=== PATIENT | male | born 1955 | race Caucasian/White ===

== ENCOUNTER 2018-04-10 07:10 | Inpatient (IN) | payer MEDICAID ==
[2018-04-10 07:14] VITALS: BMI 29.5
--- NOTE | 2018-04-10 07:16 | ED PDOC ---
Arrival/HPI - General Chief Complaint: Respiratory Distress Time Seen by Provider: 04/10/18 07:11 Historian: Patient EM Caveat: Acuity of Condition - Critical Care Critical Care Minutes: 45 minutes - History of Present Illness Narrative History of Present Illness (Text): 04/10/18 07:13 62 year old male, whose past medical history includes NIDDM and hyperlipidemia, presents to the emergency department complaining of shortness of breath with associated chest pain from earlier today. The patient was seen in [facility] department with the presenting symptoms and an aortic dissection protocol CT scan was performed. CT was negative for dissection, but was still dyspneic. He was almost intubated and was given Lasix, Ativan, fentanyl, prior to intubation and responded to the medication. His original EKG revealed ST elevations in V1, V2, V3 with reciprocal depressions in V4-V6 as well lead 2 and 3 and 1. EKG was sent immediately to Dr. Bishop who requested for [facility] to be initiated. A more complete HPI was unable to be obtained due to the patient's clinical condition Time/Duration: Prior to Arrival Symptom Onset: Gradual Symptom Course: Unchanged Quality: Unable to Describe Severity Level: Severe Activities at Onset: Significant Context: Home Past Medical History - Provider Review Nursing Documentation Reviewed: Yes - Travel History Have you recently traveled outside [place] w/in the past 3 mons?: No - Infectious Disease Hx of Infectious Diseases: None - Tetanus Immunization Tetanus Immunization: Unknown - Cardiac Hx Hyperlipemia: Yes - Endocrine/Metabolic Hx Diabetes Mellitus Type 2: Yes - Psychiatric Hx Substance Use: No - Surgical History Other/Comment: Pt states numerous surgeries r/t ca hx. - Anesthesia Hx Anesthesia: Yes Hx Anesthesia Reactions: No Hx Malignant Hyperthermia: No - Suicidal Assessment Feels Threatened In Home Enviroment: No Family/Social History - Physician Review Nursing Documentation Reviewed: Yes Family/Social History: Unknown Family HX Smoking Status: Heavy Smoker > 10 Cigarettes Daily Hx Alcohol Use: No Hx Substance Use: No Hx Substance Use Treatment: Yes Allergies/Home Meds Allergies/Adverse Reactions: Allergies No Known Allergies Allergy (Verified 04/10/18 07:11) Home Medications: Home Meds Medication Instructions Recorded Confirmed Omeprazole [Prilosec] 40 mg PO DAILY 08/04/14 04/10/18 Alogliptin Meir/Metformin HCl 1 each PO BID 04/10/18 04/10/18 [Alogliptin-Metformin 12.5-1000] Ascorbic Acid [Vitamin C] 500 mg PO DAILY 04/10/18 04/10/18 Atorvastatin [Lipitor] 10 mg PO DAILY 04/10/18 04/10/18 Cholecalciferol [Vitamin D] 50,000 iu PO QWK 04/10/18 04/10/18 Enalapril Maleate [Vasotec] 2.5 mg PO DAILY 04/10/18 04/10/18 Fenofibrate,Micronized 134 mg PO DAILY 04/10/18 04/10/18 [Fenofibrate] Gabapentin 800 mg PO TID 04/10/18 04/10/18 Insulin Lispro Mix 75/25 [humalog 55 units SC QAM 04/10/18 04/10/18 Mix 75/25 75 U/Ml-25 U/Ml 10 Ml] Insulin Lispro Mix 75/25 [humalog 55 units SC QPM 04/10/18 04/10/18 Mix 75/25 75 U/Ml-25 U/Ml 10 Ml] Liraglutide [Victoza] 1.8 mg SC DAILY 04/10/18 04/10/18 [place]-3 Fatty Acids/Fish Oil 2 cap PO BID 04/10/18 04/10/18 [[place] 3 Fish Oil Softgel] Review of Systems - Physician Review All systems were reviewed & negative as marked: Yes - Review of Systems Systems not reviewed;Unavailable: Acuity of Condition Respiratory: SOB Cardiovascular: Chest Pain Physical Exam - Physical Exam Physical Exam Limitations: Clinical Condition Vital Signs Reviewed: Yes Blood Pressure: Normal Pulse: Tachycardic Respiratory Rate: Tachypneic Appearance: Positive for: Well-Appearing, Non-Toxic, Comfortable Pain Distress: None Mental Status: Positive for: Alert and Oriented X 3 - Systems Exam Head: Present: Atraumatic, Normocephalic Pupils: Present: PERRL Extroacular Muscles: Present: EOMI Mouth: Present: Moist Mucous Membranes Respiratory/Chest: Present: Rales (diffuse rales in the anterior lung fileds ). No: Respiratory Distress, Accessory Muscle Use Cardiovascular: Present: Normal S1, S2, Tachycardic. No: Murmurs Upper Extremity: Present: Normal Inspection. No: Cyanosis, Edema Lower Extremity: Present: Normal Inspection. No: Edema (no pitting edema ) Neurological: Present: GCS=15, Speech Normal Skin: Present: Warm, Dry, Diaphoretic. No: Rashes Psychiatric: Present: Alert, Oriented x 3 Medical Decision Making ED Course and Treatment: 04/10/18 07:15 Impression 62 year old male who presents to the emergency department complaining of shortness of breath and chest pain. Differential Diagnoses --STEMI Plan -- IV Fluids -- VBG -- EKG -- Labs -- Cardiology consult -- Heparin -- Integrilin Bolus -- Reassess and disposition Progress Notes 04/10/18 07:[address] Bishop (interventional cardiology) who requests [facility] to be called. 04/10/18 07:24 Dr. Bishop at the bedside who requests Heparin and integrellin bolus as well as im mediate transport to labor service representative. 04/10/18 07:[address] Olivares(hospitalist) who accepts the patient into his service. - Critical Care Critical Care Minutes: 45 minutes - Lab Interpretations Lab Results: 04/10/18 07:20 04/10/18 07:20 Lab Results 04/10/18 07:20: PT 11.6, INR 1.03 04/10/18 07:20: Blood Type AB POSITIVE, Antibody Screen Negative, BBK History Checked No verified bt 04/10/18 07:20: Sodium 136, Potassium 4.4, Chloride 104, Carbon Dioxide 20 L, Anion Gap 17, BUN 15, Creatinine 1.0, Est GFR ( Amer) > 60, Est GFR (Non- Af Amer) > 60, Random Glucose 267 H, Calcium 8.7, Magnesium 1.8, Total Bilirubin 0.2, AST 27, ALT 11, Alkaline Phosphatase 55, Troponin I 0.11 D, NT-Pro-B Natriuret Pep 551 H, Total Protein 8.1, Albumin 4.5, Globulin 3.6, Albumin/Globulin Ratio 1.3 04/10/18 07:20: APTT 33.2, D-Dimer, Quantitative 608 H 04/10/18 07:20: WBC 21.8 H, RBC 5.36, Hgb 12.7 L, Hct 40.4 L, MCV 75.4 L, MCH 23.7 L, MCHC 31.4, RDW 17.6 H, Plt Count 531 H, MPV 10.4, Neut % (Auto) 74.1 H, Lymph % (Auto) 18.0 L, [place] % (Auto) 6.4 H, Eos % (Auto) 1.3 L, Baso % (Auto) 0.2, Lymph # (Auto) 3.9 H, [place] # (Auto) 1.4 H, Eos # (Auto) 0.3, Baso # (Auto) 0.04, Absolute Neuts (auto) 16.17 H I have reviewed the lab results: Yes - RAD Interpretation Radiology Orders: 04/10/18 07:11 CHEST PORTABLE [RAD] Stat - EKG Interpretation EKG Interpretation (Text): 04/10/18 08:18 EKG performed at 6:18 reviewed by me shows: Sinus tachycardia at [address] elevations in the V1 &V2 and ST depressions in V5-V6. EKG performed at 7:18 reviewed by me shows: Sinus tachycardia at [address] elevations in leads II, III, I, avF and ST depressions in V4-V6. Interpreted by ED Physician: Yes Type: 12 lead EKG - Medication Orders Current Medication Orders: 04/15/18 06:57 Discontinued Medications Aspirin (Ecotrin) 81 mg PO DAILY [facility] Last Admin: 04/10/18 14:48 Dose: Not Given Non-Admin Reason: NPO Atorvastatin Calcium (Lipitor) 40 mg PO DIN [facility] Carvedilol (Coreg) 3.125 mg PO BID [facility] Last Admin: 04/10/18 14:48 Dose: Not Given Non-Admin Reason: NPO Eptifibatide (Integrilin Bolus) 15,406.74 mg IVP STAT STA Stop: 04/10/18 07:19 Eptifibatide (Integrilin Bolus) 15 mg IVP ONCE ONE Stop: 04/10/18 08:01 Last Admin: 04/10/18 08:17 Dose: 15 mg IVP Administration Document 04/10/18 08:17 KV (Rec: 04/10/18 08:17 KV [facility] [id number] Charges for Administration # of IVP Administrations 1 Furosemide (Lasix) 40 mg IVP ONCE ONE Stop: 04/10/18 09:42 Furosemide (Lasix) 40 mg IV DAILY [facility] Heparin Sodium (Porcine) (Heparin) 6,000 units 70 units/kg (6000 units) IV ONCE ONE; Protocol Stop: 04/10/18 07:18 Heparin Sodium (Porcine) (Heparin) 5,000 units IV ONCE ONE; Protocol Stop: 04/10/18 07:18 Last Admin: 04/10/18 08:17 Dose: 5,000 units eMAR Start Stop Document 04/10/18 08:17 KV (Rec: 04/10/18 08:18 KV [facility] [id number] Intravenous Solution Start Date 04/10/18 Start Time 07:19 End Date 04/10/18 End time 07:20 Total Infusion Time 1 Sodium Chloride (Sodium Chloride 0.9%) 1,000 mls @ 50 mls/hr IV .Q20H [facility] Last Admin: 04/10/18 12:10 Dose: 50 mls/hr eMAR Start Stop Document 04/10/18 12:10 KAC (Rec: 04/10/18 12:11 [id number]) Intravenous Solution Start Date 04/10/18 Start Time 09:50 Heparin Sodium/Sodium Chloride (Heparin 92206 Units/250ml 1/2 Normal Saline) 25,000 units in 250 mls @ 10.271 mls/hr IV .Q24H [facility]; Protocol Dexmedetomidine HCl (Precedex 400mcg/100ml) 400 mcg in 100 mls @ 4.28 mls/hr IV .[id number] PRN; Protocol PRN Reason: Sedation Last Admin: 04/10/18 15:34 Dose: 1.2 mcg/kg/hr, 25.678 mls/hr eMAR Start Stop Document 04/10/18 15:34 KAC (Rec: 04/10/18 15:35 [id number]) Intravenous Solution Start Date 04/10/18 Start Time 15:35 Pierre Agitation Sedation Document 04/10/18 15:34 KAC (Rec: 04/10/18 15:35 [id number]) Pierre Agitation Sedation Scale Pierre Agitation Sedation Scale Score -3 Moderate Sedation:Movement or eye opening to voice (no eye contact) Titration Intervention Document 04/10/18 15:34 KAC (Rec: 04/10/18 15:35 [id number]) Titration Intake Cumulative Intake (Rx) 180 Waste Amount 0 Container Volume 100 Titration Dosing Titration Dose 1.2 IV Rate 25.678 Intake/Decrease Started/Running Cumulative Dose 720 NOREPINEPHRINE BIT/0.9 % NACL (Levophed 4 Mg/ 250 Ml Ns Premixed) 4 mg in 250 mls @ 15 mls/hr IV .[id number] PRN; Protocol PRN Reason: TITRATE PER MD ORDER Last Admin: 04/10/18 11:00 Dose: 4 mcg/min, 15 mls/hr eMAR Start Stop Document 04/10/18 11:00 [facility] (Rec: 04/10/18 12:06 [facility]) Intravenous Solution Start Date 04/10/18 Start Time 11:00 Titration Intervention Document 04/10/18 11:00 [facility] (Rec: 04/10/18 12:06 [facility]-) Titration Intake Waste Amount 0 Container Volume 250 Titration Dosing Titration Dose 4 IV Rate 15 Intake/Decrease Started Cefazolin Sodium (Ancef 1gm In Ns) 1 gm in 100 mls @ 100 mls/hr IVPB Q8H [facility] Last Admin: 04/10/18 12:12 Dose: 100 mls/hr eMAR Start Stop Document 04/10/18 12:12 [facility] (Rec: 04/10/18 12:13 [facility]-) Intravenous Solution Start Date 04/10/18 Start Time 12:13 End Date 04/10/18 End time 13:13 Total Infusion Time 60 Propofol (Diprivan) 1,000 mg in 100 mls @ 2.568 mls/hr IV .Q24H PRN; Protocol PRN Reason: TITRATE PER MD ORDER Last Titration: 04/10/18 14:52 Dose: 15 mcg/kg/min, 7.703 mls/hr Pierre Agitation Sedation Document 04/10/18 14:52 [facility] (Rec: 04/10/18 14:53 [facility]-) Pierre Agitation Sedation Scale Pierre Agitation Sedation Scale Score +2 Agitated: Frequent non- purposeful movement, fights ventilator Titration Intervention Document 04/10/18 14:52 [facility] (Rec: 04/10/18 14:53 [facility]) Titration Intake Titration Intake 10 Cumulative Intake 15 Cumulative Intake (Rx) 15 Waste Amount 0 Container Volume 85 Titration Dosing Titration Dose 15 IV Rate 7.703 Intake/Decrease Increased Cumulative Dose 150 Milrinone Lactate/Dextrose (Primacor 20mg/100ml D5w) 100 mls @ 5.136 mls/hr IV .[id number] PRN; Protocol PRN Reason: TITRATE PER MD ORDER Metoprolol Tartrate (Lopressor) 5 mg IVP ONCE ONE Stop: 04/10/18 09:36 Last Admin: 04/10/18 12:07 Dose: Not Given Non-Admin Reason: BP Parameters Not Met MAR Pulse and Blood Pressure Document 04/10/18 12:07 [facility] (Rec: 04/10/18 12:07 [id number]) Pulse Pulse Rate (60-90 beats/min) 70 Blood Pressure Blood Pressure (100/60-150/90 mm Hg) 84/44 Ramipril (Altace) 1.25 mg PO DAILY [facility] Last Admin: 04/10/18 10:00 Dose: Not Given Non-Admin Reason: NPO - Scribe Statement The provider has reviewed the documentation as recorded by the Scribetta Renner Provider Scribe Attestation: All medical record entries made by the Scribe were at my direction and personally dictated by me. I have reviewed the chart and agree that the record accurately reflects my personal performance of the history, physical exam, medical decision making, and the department course for this patient. I have also personally directed, reviewed, and agree with the discharge instructions and disposition. Disposition/Present on Arrival - Present on Arrival Any Indicators Present on Arrival: No History of DVT/PE: No History of Uncontrolled Diabetes: No Urinary Catheter: No History Surgical Site Infection Following: None - Disposition Have Diagnosis and Disposition been Completed?: Yes Diagnosis: STEMI (ST elevation myocardial infarction) Disposition: HOSPITALIZED Disposition Time: 06:57 Patient Plan: Admission, ICU Condition: CRITICAL
[2018-04-10] MEDS ORDERED: Eptifibatide 20 mg/10mL Inj IVP STA ×2 (07:18)
[2018-04-10] MEDS ORDERED: Eptifibatide 0.75 mg/ml 75 MG/100 ML BOTTLE IV ONE ×2 (07:21→07:30)
[2018-04-10] MEDS ORDERED: Phenylephrine 10 mg/ml Inj ONE (07:23)
[2018-04-10] MEDS ORDERED: Lidocaine PF 2% (5 ml) Inj (For Cardiac Arrhy) ONE (07:23)
[2018-04-10] MEDS ORDERED: Iohexol 350mgl/ml 50 ML ONE (07:24)
[2018-04-10] MEDS ORDERED: Nitroglycerin 50mg in D5W 0 MG/0 ML BOTTLE IV ONE (07:24)
[2018-04-10] MEDS ORDERED: Iodixanol 320 MG/ML 100 ML BOTTLE IV ONE (07:24)
[2018-04-10] MEDS ORDERED: Iodixanol 320 MG/ML 200 ML BOTTLE IV ONE (07:24)
[2018-04-10] MEDS ORDERED: Eptifibatide 20 mg/10mL Inj IVP ONE ×3 (07:31→08:00)
[2018-04-10 07:37] LABS: BASO # 0.04 K/mm3 (0.0-2.0); BASO % 0.2 % (0.0-3.0); EOS # 0.3 (0.0-0.7); EOS % 1.3 % (1.5-5.0); HEMOGLOBIN 12.7 g/dL (14.0-18.0); LYMPH # 3.9 (1.2-3.4); MEAN CELL VOLUME 75.4 fl (80.0-105.0); MEAN CORPUSCULAR HEMOGLOBIN 23.7 pg (25.0-35.0); MEAN CORPUSCULAR HGB CONC 31.4 g/dl (31.0-37.0); MEAN PLATELET VOLUME 10.4 fl (7.0-11.0); MONO # 1.4 (0.1-0.6); MONO % 6.4 % (1.0-6.0); RBC 5.36 10^6/uL (3.5-6.1); RED CELL DISTRIBUTION WIDTH 17.6 % (11.5-14.5); WHITE BLOOD COUNT 21.8 10^3/uL (4.5-11.0)
[2018-04-10 07:46] LABS: ALB/GLOB RATIO 1.3 (1.1-1.8); ALBUMIN 4.5 g/dL (3.0-4.8); ALT/SGPT 11 U/L (7-56); AST/SGOT 27 U/L (17-59); BLOOD UREA NITROGEN 15 mg/dL (7-21); CALCIUM 8.7 mg/dL (8.4-10.5); GFR NON-AFRICAN AMERICAN > 60
[2018-04-10 07:58] LABS: B-TYPE NATRIURETIC PEPTIDE 551 pg/mL (0-450); TROPONIN I 0.11 ng/mL
[2018-04-10] MEDS ORDERED: Morphine 4 mg/ml ISec ONE (08:08)
[2018-04-10] MEDS ORDERED: Nitroglycerin 2% Ointment Foilpak UD TOP ONE (08:09)
[2018-04-10 08:13] VITALS: O2SAT 100
[2018-04-10] MEDS ORDERED: Midazolam 2 MG/2 ML VIAL ONE (08:13)
[2018-04-10] MEDS ORDERED: Propofol 10 mg/ml Inj (20 ML) ONE (08:17)
[2018-04-10 08:19] LABS: PARTIAL THROMBOPLASTIN TIME 33.2 Seconds (26.9-38.3)
[2018-04-10 08:25] VITALS: TEMP 97.9
[2018-04-10] MEDS ORDERED: Heparin25000 units/250ml 1/2NS 25,000 UNITS/250 ML BAG IV ONE (08:37)
--- NOTE | 2018-04-10 08:42 | RAD ---
Date of service: 04/10/2018 HISTORY: sob COMPARISON: No prior. FINDINGS: LUNGS: Hazy densities appreciate with increased reticular markings in the mid to inferior right lung zone somewhat greater the right than left. This accompanies what appear to be Luis B-lines developing in the periphery of the mid inferior lung zones bilaterally a mild prominence of the central hilar vascular markings. Cardiac size is not appear significantly enlarged at this time. Consider possible active CHF/pulmonary edema nevertheless. Atypical mixed alveolar/interstitial pneumonitis is the differential diagnosis. Further clinical correlation is recommended. PLEURA: No significant pleural effusion identified, no pneumothorax apparent. CARDIOVASCULAR: No aortic atherosclerotic calcification present. Normal cardiac size. Pulmonary vascular congestion. OSSEOUS STRUCTURES: No significant abnormalities. VISUALIZED UPPER ABDOMEN: Normal. OTHER FINDINGS: None. IMPRESSION: Pulmonary edema versus atypical pneumonitis as discussed above. Clinically correlate further.
[2018-04-10] MEDS ORDERED: Sodium Chloride 0.9% 1,000 ML IV SCH (08:45)
[2018-04-10] MEDS ORDERED: Propofol 10 mg/ml 1,000 MG/100 ML VIAL ONE ×2 (08:48→13:56)
--- NOTE | 2018-04-10 08:49 | PCM.PROC ---
Procedures Attestation:: I certify that I have explained the specified Operation(s) or Procedure(s), risks, benefits and reasonable alternatives to the Patient and/or other person responsible. The opportunity was given to ask questions and all questions answered - Intubation Sedative: Versed, Fentanyl, Other (propofol) Laryngoscope: Yan (3) ET Tube Size: 7.5 ET Tube Secured at Depth: 22 at teeth ET Tube Secured Locarion: Teeth ET Tube Placement Confirmation: Visualized Passing Through Cords, Breath Sounds Equal Bilaterally, No Breath Sounds Over Epigastrum, Confirmation w/Capnometry Patient Tolerated Procedure: Well Procedure Immediate Complications: None Additional comments: used fluro while in rn labor and delivery to confirm position, noted tube to be above arnold
[2018-04-10] MEDS ORDERED: Heparin25000 units/250ml 1/2NS 25,000 UNITS/250 ML BAG IV SCH (09:00)
--- NOTE | 2018-04-10 09:11 | CARD ---
APPROVED REPORT Date of service: 04/10/2018 Procedure(s) performed: Left Heart Catheterization PTCA with Stenting of LAD attempted. IABP Intubated HISTORY The patient is a 62 year-old male with a history of : diabetes mellitus with oral treatment , tobacco history() : The patient is a current smoker , Admitted with Code STEMI. INDICATION The indication(s) include : STEMI (>6 hrs to = 12 hrs). CASE TECHNIQUE The patient was brought emergently to the Cardiac Catheterization Laboratory in a fasting state and was prepped and draped in a sterile manner. The right femoral groin was infiltrated with 2% Lidocaine subcutaneous anesthesia. A sheath was inserted into the right femoral artery without difficulty. Coronary angiography was performed using coronary diagnostic catheters. The left coronary system was accessed and visualized with a Diagnostic , JL catheter. The right coronary system was accessed and visualized with a Diagnostic , JR catheter. The left ventricle was accessed and visualized with a Diagnostic , JR catheter. Left ventricular/Aortic Valve gradient assessed on pullback. Left ventriculogram was performed in GALINDO projection. The patient tolerated the procedure well and there were no complications associated with the procedure. IABP placed Vessel Analysis The patient's coronary anatomy is co-dominant. The left main coronary artery is a large size vessel with diffuse calcification noted throughout this vessel and without significant stenosis. The left main bifurcates to the left anterior descending and circumflex. The left anterior descending artery is a medium size vessel with diffuse calcification noted throughout this vessel and with significant stenosis. There is a 99% stenosis in the mid segment. Multiple stenoses with Hair pin turn The first diagonal branch is a medium size vessel with diffuse calcification noted throughout this vessel and without significant stenosis. The circumflex artery is a large size vessel with diffuse calcification noted throughout this vessel and with significant stenosis. There is a 90% stenosis in the proximal segment. The first obtuse marginal branch is a small size vessel with diffuse calcification noted throughout this vessel and without significant stenosis. The second obtuse marginal branch is a medium size vessel with diffuse calcification noted throughout this vessel and without significant stenosis. The left posterior descending artery is a large size vessel with diffuse calcification noted throughout this vessel and without significant stenosis. There is a 60-70% stenosis in the proximal segment. The right coronary artery is a large size vessel with diffuse calcification noted throughout this vessel and with significant stenosis. There is a 100% stenosis in the mid segment. Left Ventricle The left ventricle is Enlarged in size with moderately contractility. Ischemic cardiomyopathy. The left ventricular ejection fraction is estimated to be 35%. The left ventricular end diastolic pressure is 20 mmHg. There was no gradient across the aortic valve upon pullback. PCI Technique Lesion Anticoagulation was achieved with Heparin and integrellin bolluses. Percutaneous coronary intervention was performed on the mid left anterior descending artery segment. The lesion stenosis prior to intervention was 99% with NADEGE 1 flow. A JL 4.0 Guide Catheter was used to engage the ostium. A PageFreezer 180 Interventional Guidewire was used to cross the lesion. BALLOON DILATION A Balloon catheter 2.0/ sprinter was inserted and inflated up to malaika for seconds. Final angiography reveals 99 % stenosis with NADEGE 1 flow. COMMENTS Breifly PTCA of LAd attempted, un able to cross. Conclusion Triple vessel CAD Cardiogenoc Shock Ischemic CMP Breifly OCTA of LAD attemped , unbable to cross b/c of tortousity of vessel IABP placed, pt intubated. in laborer car barn b/c of pulmonar edema. Recommendations Stablize pt on IABP, oN vent and transfer to [facility] for emergent CABG. Discussed with Dr. Nicholas Thomason at [facility]. Interim continue ASA/ Beta deedee/ Iv Heparin/ Diuretic. CC; Sujatha Martinez MD
--- NOTE | 2018-04-10 09:30 | CPOSTOP ---
DATE: 04/10/2018 CARDIOVASCULAR POSTPROCEDURE NOTE PHYSICIAN: Kasi Bishop MD SENIOR IT AUDITOR: Will Arnold, behavioral health technician. TYPE OF ANESTHESIA: Moderate conscious sedation. PRE-PROCEDURE DIAGNOSIS: Acute ST elevation myocardial infarction, rule out cardiogenic shock, pulmonary edema. PROCEDURE PERFORMED: Left heart catheterization, attempt at left anterior descending artery and intra-aortic balloon pump placement. FINDINGS: Left main essentially free of significant disease. LAD 99% stenosis, very tortuous, multiple hairpin turn. Circumflex proximal 80% to 90% stenosis. RCA total ejection fraction 35%. FINAL DIAGNOSIS: Multivessel coronary artery disease, cardiogenic shock, intra-aortic balloon pump. POST PROCEDURE PATIENT CONDITION: Critical, but stable. VASCULAR ACCESS SITE: Right femoral groin. CLOSURE DEVICE: None. Intra-aortic balloon pump in place on the right femoral artery. RADIATION DOSE: 14328.00 milligray unit. FLUORO TIME: 10.5 minutes. Kasi Bishop MD MTDNeda
[2018-04-10] MEDS ORDERED: Metoprolol 1 mg/ml Inj IVP ONE (09:35)
[2018-04-10] MEDS ORDERED: DEXMEDETOMIDINE ONE (09:45)
[2018-04-10] MEDS: Dexmedetomidine 400mcg/100mL 400 MCG/100 ML BOTTLE IV PRN ×3 (10:00→15:34)
[2018-04-10] MEDS ORDERED: Propofol 10 mg/ml 1,000 MG/100 ML VIAL IV PRN (10:00)
--- NOTE | 2018-04-10 10:09 | CARD ---
APPROVED REPORT Date of service: 04/10/2018 EKG Measurement Heart [id number] <Conclusion> Sinus tachycardia Biatrial enlargement Marked ST abnormality, possible inferolateral subendocardial injury Abnormal ECG
--- NOTE | 2018-04-10 10:21 | RAD ---
Date of service: 04/10/2018 HISTORY: post intubation COMPARISON: Earlier study same day FINDINGS: LUNGS: Increasing diffuse alveolar infiltrate consistent with pulmonary edema. Endotracheal tube and nasogastric tube in satisfactory position PLEURA: No significant pleural effusion identified, no pneumothorax apparent. CARDIOVASCULAR: No aortic atherosclerotic calcification present. Normal cardiac size. No pulmonary vascular congestion. OSSEOUS STRUCTURES: No significant abnormalities. VISUALIZED UPPER ABDOMEN: Normal. OTHER FINDINGS: None. IMPRESSION: Increasing diffuse alveolar infiltrate consistent with pulmonary edema. Endotracheal tube and nasogastric tube in satisfactory position
[2018-04-10] MEDS ORDERED: NOREPINEPHRINE BIT/0.9 % NACL 4 MG/250 ML BAG IV ONE (10:22)
[2018-04-10] MEDS ORDERED: NOREPINEPHRINE BIT/0.9 % NACL 4 MG/250 ML BAG IV PRN (10:22)
[2018-04-10 10:43] LABS: ARTERIAL BLOOD GAS HCO3 22.6 mmol/L (21-28); ARTERIAL BLOOD GAS HEMOGLOBIN 9.9 g/dL (11.7-17.4); ARTERIAL BLOOD GAS O2 CAPACITY 14.6 mL/dl (16-24); ARTERIAL BLOOD GAS O2 CONTENT 14.4 ML/dl (15-23); ARTERIAL BLOOD GAS O2 SAT 98.3 % (95-98); ARTERIAL BLOOD GAS PCO2 46 mm/Hg (35-45)
--- NOTE | 2018-04-10 10:50 | CARD ---
APPROVED REPORT Date of service: 04/10/2018 EKG Measurement Heart [id number] ID [id number] <Conclusion> Normal sinus rhythm Biatrial enlargement Left ventricular hypertrophy with Ischaemic ST-T Changes. Cannot rule out Septal infarct, age undetermined Abnormal ECG
[2018-04-10 10:55] LABS: VENOUS BLOOD GAS BASE EXCESS -4.2 mmol/L (0.0-2.0); VENOUS BLOOD GAS PO2 78 mm/Hg (30-55); VENOUS BLOOD PH 7.24 (7.32-7.43)
[2018-04-10 10:57] LABS: EOS % 0.1 % (1.5-5.0); LYMPH # 0.8 (1.2-3.4); LYMPH % 7.6 % (22.0-35.0); MEAN CELL VOLUME 75.9 fl (80.0-105.0); MEAN CORPUSCULAR HEMOGLOBIN 22.8 pg (25.0-35.0); MONO % 9.9 % (1.0-6.0); RBC 4.48 10^6/uL (3.5-6.1); RED CELL DISTRIBUTION WIDTH 17.3 % (11.5-14.5)
--- NOTE | 2018-04-10 11:02 | CARD ---
APPROVED REPORT Date of service: 04/10/2018 EXAM: Two-dimensional and M-mode echocardiogram with Doppler and color Doppler. INDICATION Chest Pain STEMI 2D DIMENSIONS IVSd1.3 (0.7-1.1cm)LVDd4.7 (3.9-5.9cm) PWd1.5 (0.7-1.1cm)LVDs4.0 (2.5-4.0cm) FS (%) 14.6 %LVEF (%)31.1 (>50%) M-Mode DIMENSIONS Aortic Root3.50 (2.2-3.7cm)Aortic Cusp Exc.1.70 (1.5-2.0cm) Aortic Valve AoV Peak Ecdmaudw121.0cm/Luda Peak GR.10mmHg Mitral Valve E/A ratio0.0 TDI E/Lateral E'0.0E/Medial E'0.0 Pulmonary Valve PV Peak Egmesngm64.2cm/sPV Peak Grad.4mmHg Tricuspid Valve TR Peak [id number]/sRAP [id number] Peak Gr.20mmHg [id number] LEFT VENTRICLE The left ventricle is normal size. There is mild concentric left ventricular hypertrophy. The systolic function is moderately impaired.EF-35-35% There is moderate to severe hypokinesis in the apical anterior wall. Transmitral Doppler flow pattern is Grade III-reversible restrictive diastolic dysfunction. No left ventricle thrombus noted on this study. There is no ventricular septal defect visualized. There is no left ventricular aneurysm. There is no mass noted in the left ventricle. RIGHT VENTRICLE The right ventricle is normal size. There is normal right ventricular wall thickness. The right ventricular systolic function is normal. ATRIA The left atrium size is normal. The right atrium size is normal. The interatrial septum is intact with no evidence for an atrial septal defect. AORTIC VALVE The aortic valve is thickened but opens well. No aortic regurgitation is present. There is no aortic valvular stenosis. There is no aortic valvular vegetation. MITRAL VALVE The mitral valve is not well visualized. Trival MR There is no mitral valve stenosis. There is no evidence of mitral valve prolapse. TRICUSPID VALVE The tricuspid valve leaflets are thickened , but open well. There is trace tricuspid regurgitation. There is no tricuspid valve stenosis. There is no tricuspid valve prolapse or vegetation. PULMONIC VALVE The pulmonary valve is normal in structure. Trivial PI There is no pulmonic valvular stenosis. GREAT VESSELS The aortic root is normal in size. The ascending aorta is normal in size. The pulmonary artery is normal. The IVC was not visualized. PERICARDIAL EFFUSION There is no pleural effusion. Trivial PE <Conclusion> Normal Chamber Size. EF-30-35% No aortic regurgitation is present. There is no aortic valvular stenosis. Trival MR There is trace tricuspid regurgitation. Trivial PI Trivial PE
[2018-04-10 11:06] LABS: HEMOGLOBIN 10.2 g/dL (14.0-18.0); WHITE BLOOD COUNT 10.3 10^3/uL (4.5-11.0)
[2018-04-10] MEDS ORDERED: ceFAZolin 1 gm in NS 1 GM/100 ML BAG IVPB SCH (11:15)
[2018-04-10 11:21] LABS: INR 1.03; PROTHROMBIN TIME 11.6 SECONDS (9.4-12.5)
--- NOTE | 2018-04-10 11:55 | PN ---
DATE: 04/10/2018 BRIEF NOTE: This is a 62-year-old male who came into the [facility] with acute STEMI, initially CAT scan was done to rule out aortic dissection and this patient was transferred to [facility] for cardiac catheterization and angioplasty because of code STEMI protocol was activated. The patient was given 5,000 heparin, Integrilin bolus was given. The patient taken to the brush clearing laborer and found to be severe triple vessel disease, RCA total, circumflex high grade stenosis, LAD multiple hairpin turn and 99% stenosis. So at that point, the patient has multiple hairpin turn, attempted PTCA of LAD because of multiple turn and the patient was getting very restless, so the procedure was aborted, intraaortic balloon pump was placed to stabilize the patient. The patient was found to be flash pulmonary edema, later on the patient is intubated and plan is to transfer the patient to [facility] for open heart surgery. I discussed with Dr.R Thomason at [facility]. I am awaiting for the bed to be transferred. We will keep the patient in brush clearing laborer if the bed is available right now; otherwise move to unit until the bed is available to transfer to [facility] Interim, we will start heparin 1000 units an hour and Integrilin was discontinued. Malik catheter in place and IV fluid. I spoke to the daughter Manisha, the patient's daughter. The patient was intubated in the brush clearing laborer by Dr.Marin Coffey Computer Tester. Kasi Bishop MD [facility]
--- NOTE | 2018-04-10 12:03 | CP.PCM.HP ---
<Marlee Knox - Last Filed: 04/10/18 13:53> History of Present Illness - History of Present Illness History of Present Illness: Marlee Knox DO, PGY-2: HPI for Dr. Atkinson, Hospitalist Service 62 year old male with a past medical history of DM II, hypertension, and smoking who presented to the [facility] ED in [place] with chest pain and intially underwent CT with contrast to rule out aortic dissection which was negative and was then found to have to have STEMI in leads V1, V2 with reciprocal ST depressions in late precordial leads. He was transferred to [facility] for Planned PCI. On arrival he was given a bolus of heparin and integrillin per ACS protocol. A chest X-ray showed diffuse alveolar infiltrate. Cardiac catherization was performed and showed severe triple vessel disease with the RCA totally occluded, the LAD 99% occluded and high grade stenosis of the left circumflex. PTCA was attempted for the culprit lesion in the LAD but was unsuccessful and the procedure was aborted. IABP was placed and the patient was intubated post- cardiac catheterization for respiratory distress and airway protection. The patient was transferred to the ICU for closer monitoring. Current plan is to transfer to [facility] for open heart surgery. The patient will be kept on a Heparin drip in the interim. Ventilator setting and hemodynamic parameters will be managed per the ICU team. The daughter of the patient was informed of the patient's guarded prognosis. PMH: DM II, hypertension PSH: unknown Allergies: NKDA Social: Smoker Present on Admission - Present on Admission Any Indicators Present on Admission: No Review of Systems - Review of Systems All systems: reviewed and no additional remarkable complaints except (as per HPI) Past Patient History - Infectious Disease Hx of Infectious Diseases: None - Tetanus Immunizations Tetanus Immunization: Unknown - Past Social History Smoking Status: Heavy Smoker > 10 Cigarettes Daily - ENDOCRINE/METABOLIC Hx Diabetes Mellitus Type 2: Yes - PSYCHIATRIC Hx Substance Use: No - SURGICAL HISTORY Other/Comment: Pt states numerous surgeries r/t ca hx. - ANESTHESIA Hx Anesthesia: Yes Hx Anesthesia Reactions: No Hx Malignant Hyperthermia: No Meds Allergies/Adverse Reactions: Allergies Allergy/AdvReac Type Severity Reaction Status Date / Time No Known Allergies Allergy Verified 04/10/18 07:11 Physical Exam - Constitutional Appears: In Acute Distress Additional comments: intubated - Head Exam Head Exam: ATRAUMATIC, NORMOCEPHALIC - Respiratory Exam Respiratory Exam: Rales - Cardiovascular Exam Cardiovascular Exam: Tachycardia - GI/Abdominal Exam GI & Abdominal Exam: Soft. absent: Guarding, Rebound - Extremities Exam Extremities exam: Positive for: normal inspection. Negative for: calf tenderness - Neurological Exam Additional comments: sedated on Propofol - Psychiatric Exam Psychiatric exam: Normal Affect, Normal Mood - Skin Skin Exam: Dry, Intact, Normal Color, Warm Results - Vital Signs Recent Vital Signs: Last Vital Signs Temp 97.9 F 04/10/18 07:12 Pulse 71 04/10/18 11:01 Resp 19 04/10/18 10:30 BP 92/46 L 04/10/18 10:30 Pulse Ox 100 04/10/18 10:30 - Labs Result Diagrams: 04/10/18 10:35 04/10/18 07:20 Labs: Laboratory Results - last 24 hr 04/10/18 04/10/18 04/10/18 07:20 07:20 07:20 WBC 21.8 H RBC 5.36 Hgb 12.7 L Hct 40.4 L MCV 75.4 L MCH 23.7 L MCHC 31.4 RDW 17.6 H Plt Count 531 H MPV 10.4 Neut % (Auto) 74.1 H Lymph % (Auto) 18.0 L Carter % (Auto) 6.4 H Eos % (Auto) 1.3 L Baso % (Auto) 0.2 Lymph # (Auto) 3.9 H Carter # (Auto) 1.4 H Eos # (Auto) 0.3 Baso # (Auto) 0.04 Absolute Neuts (auto) 16.17 H PT INR APTT 33.2 D-Dimer, Quantitative 608 H pCO2 pO2 HCO3 ABG pH ABG Total CO2 ABG O2 Saturation ABG O2 Content ABG Base Excess ABG Hemoglobin ABG Carboxyhemoglobin POC ABG HHb (Measured) ABG Methemoglobin ABG O2 Capacity VBG pH VBG pCO2 VBG HCO3 VBG Total CO2 VBG O2 Sat (Calc) VBG Base Excess VBG Potassium Hgb O2 Saturation Glucose Lactate FiO2 Sodium 136 Potassium 4.4 Chloride 104 Carbon Dioxide 20 L Anion Gap 17 BUN 15 Creatinine 1.0 Est GFR ( Amer) > 60 Est GFR (Non-Af Amer) > 60 POC Glucose (mg/dL) Random Glucose 267 H Calcium 8.7 Magnesium 1.8 Total Bilirubin 0.2 AST 27 ALT 11 Alkaline Phosphatase 55 Troponin I 0.11 D NT-Pro-B Natriuret Pep 551 H Total Protein 8.1 Albumin 4.5 Globulin 3.6 Albumin/Globulin Ratio 1.3 Venous Blood Potassium Blood Type Blood Type Confirm Antibody Screen BBK History Checked 04/10/18 04/10/18 04/10/18 07:20 07:20 10:35 WBC RBC Hgb Hct MCV MCH MCHC RDW Plt Count MPV Neut % (Auto) Lymph % (Auto) Carter % (Auto) Eos % (Auto) Baso % (Auto) Lymph # (Auto) Carter # (Auto) Eos # (Auto) Baso # (Auto) Absolute Neuts (auto) PT 11.6 INR 1.03 APTT D-Dimer, Quantitative pCO2 pO2 78 H HCO3 ABG pH ABG Total CO2 ABG O2 Saturation ABG O2 Content ABG Base Excess ABG Hemoglobin ABG Carboxyhemoglobin POC ABG HHb (Measured) ABG Methemoglobin ABG O2 Capacity VBG pH 7.24 L VBG pCO2 56.0 VBG HCO3 24.0 VBG Total CO2 25.7 VBG O2 Sat (Calc) 94.9 H VBG Base Excess -4.2 L VBG Potassium 4.3 Hgb O2 Saturation Glucose 202 H Lactate 1.8 FiO2 21.0 Sodium 136.0 Potassium Chloride 105.0 Carbon Dioxide Anion Gap BUN Creatinine Est GFR ( Amer) Est GFR (Non-Af Amer) POC Glucose (mg/dL) Random Glucose Calcium Magnesium Total Bilirubin AST ALT Alkaline Phosphatase Troponin I NT-Pro-B Natriuret Pep Total Protein Albumin Globulin Albumin/Globulin Ratio Venous Blood Potassium 4.3 Blood Type AB POSITIVE Blood Type Confirm Antibody Screen Negative BBK History Checked No verified bt 04/10/18 04/10/18 04/10/18 10:35 10:35 10:40 WBC 10.3 D RBC 4.48 Hgb 10.2 L D Hct 34.0 L MCV 75.9 L MCH 22.8 L MCHC 30.0 L RDW 17.3 H Plt Count 377 MPV 10.0 Neut % (Auto) 82.4 H Lymph % (Auto) 7.6 L Carter % (Auto) 9.9 H Eos % (Auto) 0.1 L Baso % (Auto) 0.0 Lymph # (Auto) 0.8 L Carter # (Auto) 1.0 H Eos # (Auto) 0.0 Baso # (Auto) 0.00 Absolute Neuts (auto) 8.48 H PT INR APTT D-Dimer, Quantitative pCO2 46 H pO2 317.0 H HCO3 22.6 ABG pH 7.30 L ABG Total CO2 24.0 ABG O2 Saturation 98.3 H ABG O2 Content 14.4 L ABG Base Excess -3.8 L ABG Hemoglobin 9.9 L ABG Carboxyhemoglobin 0.5 POC ABG HHb (Measured) 1.7 ABG Methemoglobin 0.5 ABG O2 Capacity 14.6 L VBG pH VBG pCO2 VBG HCO3 VBG Total CO2 VBG O2 Sat (Calc) VBG Base Excess VBG Potassium Hgb O2 Saturation 97.3 Glucose Lactate FiO2 100.0 Sodium Potassium Chloride Carbon Dioxide Anion Gap BUN Creatinine Est GFR ( Amer) Est GFR (Non-Af Amer) POC Glucose (mg/dL) Random Glucose Calcium Magnesium Total Bilirubin AST ALT Alkaline Phosphatase Troponin I NT-Pro-B Natriuret Pep Total Protein Albumin Globulin Albumin/Globulin Ratio Venous Blood Potassium Blood Type Blood Type Confirm AB POSITIVE Antibody Screen BBK History Checked 04/10/18 11:20 WBC RBC Hgb Hct MCV MCH MCHC RDW Plt Count MPV Neut % (Auto) Lymph % (Auto) Carter % (Auto) Eos % (Auto) Baso % (Auto) Lymph # (Auto) Carter # (Auto) Eos # (Auto) Baso # (Auto) Absolute Neuts (auto) PT INR APTT D-Dimer, Quantitative pCO2 pO2 HCO3 ABG pH ABG Total CO2 ABG O2 Saturation ABG O2 Content ABG Base Excess ABG Hemoglobin ABG Carboxyhemoglobin POC ABG HHb (Measured) ABG Methemoglobin ABG O2 Capacity VBG pH VBG pCO2 VBG HCO3 VBG Total CO2 VBG O2 Sat (Calc) VBG Base Excess VBG Potassium Hgb O2 Saturation Glucose Lactate FiO2 Sodium Potassium Chloride Carbon Dioxide Anion Gap BUN Creatinine Est GFR ( Amer) Est GFR (Non-Af Amer) POC Glucose (mg/dL) 170 H Random Glucose Calcium Magnesium Total Bilirubin AST ALT Alkaline Phosphatase Troponin I NT-Pro-B Natriuret Pep Total Protein Albumin Globulin Albumin/Globulin Ratio Venous Blood Potassium Blood Type Blood Type Confirm Antibody Screen BBK History Checked Assessment & Plan - Assessment and Plan (Free Text) Assessment: 62 year old male admitted to ICU for acute STEMI who was found to have triple vessel disease not correctable by an attempt at PCI and now in cardiogenic shock with flash pulmonary edema and now on a low-dose Peripheral Levophed drip, IABP, intubated, and sedated in the ICU awaiting transfer to [facility] for open heart surgery. Prognosis is guarded. Patient remains on heparin drip and will be closely monitored in the ICU. Case was reviewed and discussed with attending physician, Dr. Atkinson - Date & Time Date: 04/10/18 Time: 12:51 <Jack Atkinson - Last Filed: 04/10/18 14:24> Results - Vital Signs Recent Vital Signs: Last Vital Signs Temp 97.9 F 04/10/18 07:12 Pulse 75 04/10/18 14:00 Resp 19 04/10/18 13:22 BP 113/76 04/10/18 14:00 Pulse Ox 100 04/10/18 14:00 - Labs Result Diagrams: 04/10/18 10:35 04/10/18 07:20 Labs: Laboratory Results - last 24 hr 04/10/18 04/10/18 04/10/18 07:20 07:20 07:20 WBC 21.8 H RBC 5.36 Hgb 12.7 L Hct 40.4 L MCV 75.4 L MCH 23.7 L MCHC 31.4 RDW 17.6 H Plt Count 531 H MPV 10.4 Neut % (Auto) 74.1 H Lymph % (Auto) 18.0 L Carter % (Auto) 6.4 H Eos % (Auto) 1.3 L Baso % (Auto) 0.2 Lymph # (Auto) 3.9 H Carter # (Auto) 1.4 H Eos # (Auto) 0.3 Baso # (Auto) 0.04 Absolute Neuts (auto) 16.17 H PT INR APTT 33.2 D-Dimer, Quantitative 608 H Plt P2Y12 React Units pCO2 pO2 HCO3 ABG pH ABG Total CO2 ABG O2 Saturation ABG O2 Content ABG Base Excess ABG Hemoglobin ABG Carboxyhemoglobin POC ABG HHb (Measured) ABG Methemoglobin ABG O2 Capacity VBG pH VBG pCO2 VBG HCO3 VBG Total CO2 VBG O2 Sat (Calc) VBG Base Excess VBG Potassium Hgb O2 Saturation Glucose Lactate FiO2 Sodium 136 Potassium 4.4 Chloride 104 Carbon Dioxide 20 L Anion Gap 17 BUN 15 Creatinine 1.0 Est GFR ( Amer) > 60 Est GFR (Non-Af Amer) > 60 POC Glucose (mg/dL) Random Glucose 267 H Calcium 8.7 Magnesium 1.8 Total Bilirubin 0.2 AST 27 ALT 11 Alkaline Phosphatase 55 Troponin I 0.11 D NT-Pro-B Natriuret Pep 551 H Total Protein 8.1 Albumin 4.5 Globulin 3.6 Albumin/Globulin Ratio 1.3 Venous Blood Potassium Blood Type Blood Type Confirm Antibody Screen BBK History Checked 04/10/18 04/10/18 04/10/18 07:20 07:20 10:35 WBC RBC Hgb Hct MCV MCH MCHC RDW Plt Count MPV Neut % (Auto) Lymph % (Auto) Carter % (Auto) Eos % (Auto) Baso % (Auto) Lymph # (Auto) Carter # (Auto) Eos # (Auto) Baso # (Auto) Absolute Neuts (auto) PT 11.6 INR 1.03 APTT D-Dimer, Quantitative Plt P2Y12 React Units pCO2 pO2 78 H HCO3 ABG pH ABG Total CO2 ABG O2 Saturation ABG O2 Content ABG Base Excess ABG Hemoglobin ABG Carboxyhemoglobin POC ABG HHb (Measured) ABG Methemoglobin ABG O2 Capacity VBG pH 7.24 L VBG pCO2 56.0 VBG HCO3 24.0 VBG Total CO2 25.7 VBG O2 Sat (Calc) 94.9 H VBG Base Excess -4.2 L VBG Potassium 4.3 Hgb O2 Saturation Glucose 202 H Lactate 1.8 FiO2 21.0 Sodium 136.0 Potassium Chloride 105.0 Carbon Dioxide Anion Gap BUN Creatinine Est GFR ( Amer) Est GFR (Non-Af Amer) POC Glucose (mg/dL) Random Glucose Calcium Magnesium Total Bilirubin AST ALT Alkaline Phosphatase Troponin I NT-Pro-B Natriuret Pep Total Protein Albumin Globulin Albumin/Globulin Ratio Venous Blood Potassium 4.3 Blood Type AB POSITIVE Blood Type Confirm Antibody Screen Negative BBK History Checked No verified bt 04/10/18 04/10/18 04/10/18 10:35 10:35 10:35 WBC 10.3 D RBC 4.48 Hgb 10.2 L D Hct 34.0 L MCV 75.9 L MCH 22.8 L MCHC 30.0 L RDW 17.3 H Plt Count 377 MPV 10.0 Neut % (Auto) 82.4 H Lymph % (Auto) 7.6 L Carter % (Auto) 9.9 H Eos % (Auto) 0.1 L Baso % (Auto) 0.0 Lymph # (Auto) 0.8 L Carter # (Auto) 1.0 H Eos # (Auto) 0.0 Baso # (Auto) 0.00 Absolute Neuts (auto) 8.48 H PT INR APTT D-Dimer, Quantitative Plt P2Y12 React Units pCO2 pO2 HCO3 ABG pH ABG Total CO2 ABG O2 Saturation ABG O2 Content ABG Base Excess ABG Hemoglobin ABG Carboxyhemoglobin POC ABG HHb (Measured) ABG Methemoglobin ABG O2 Capacity VBG pH VBG pCO2 VBG HCO3 VBG Total CO2 VBG O2 Sat (Calc) VBG Base Excess VBG Potassium Hgb O2 Saturation Glucose Lactate FiO2 Sodium Potassium Chloride Carbon Dioxide Anion Gap BUN Creatinine Est GFR ( Amer) Est GFR (Non-Af Amer) POC Glucose (mg/dL) Random Glucose Calcium Magnesium Total Bilirubin AST ALT Alkaline Phosphatase Troponin I NT-Pro-B Natriuret Pep Total Protein Albumin Globulin Albumin/Globulin Ratio Venous Blood Potassium Blood Type Blood Type Confirm AB POSITIVE Antibody Screen BBK History Checked 04/10/18 04/10/18 10:40 11:20 WBC RBC Hgb Hct MCV MCH MCHC RDW Plt Count MPV Neut % (Auto) Lymph % (Auto) Carter % (Auto) Eos % (Auto) Baso % (Auto) Lymph # (Auto) Carter # (Auto) Eos # (Auto) Baso # (Auto) Absolute Neuts (auto) PT INR APTT D-Dimer, Quantitative Plt P2Y12 React Units pCO2 46 H pO2 317.0 H HCO3 22.6 ABG pH 7.30 L ABG Total CO2 24.0 ABG O2 Saturation 98.3 H ABG O2 Content 14.4 L ABG Base Excess -3.8 L ABG Hemoglobin 9.9 L ABG Carboxyhemoglobin 0.5 POC ABG HHb (Measured) 1.7 ABG Methemoglobin 0.5 ABG O2 Capacity 14.6 L VBG pH VBG pCO2 VBG HCO3 VBG Total CO2 VBG O2 Sat (Calc) VBG Base Excess VBG Potassium Hgb O2 Saturation 97.3 Glucose Lactate FiO2 100.0 Sodium Potassium Chloride Carbon Dioxide Anion Gap BUN Creatinine Est GFR ( Amer) Est GFR (Non-Af Amer) POC Glucose (mg/dL) 170 H Random Glucose Calcium Magnesium Total Bilirubin AST ALT Alkaline Phosphatase Troponin I NT-Pro-B Natriuret Pep Total Protein Albumin Globulin Albumin/Globulin Ratio Venous Blood Potassium Blood Type Blood Type Confirm Antibody Screen BBK History Checked Attending/Attestation - Attestation I have personally seen and examined this patient.: Yes I have fully participated in the care of the patient.: Yes I have reviewed all pertinent clinical information: Yes Notes (Text): 04/10/18 14:19 62 year old male with past medical history of diabetes who presented with morning with complaint of chest pain and shortness of breath. Found to have STEMI and flash pulmonary edema. Received iv lasix. S/p cardiac cath this morning which showed triple vessel disease. S/p intubation. Continue IABP. Continue with heparin drip. Continue with aspirin, coreg, statin and ramipril. Case was discussed with Dr. Bishop; patient is awaiting transfer to [facility]. Jack Atkinson MD Hospitalist.
--- NOTE | 2018-04-10 12:14 | CP.PCM.CON ---
History of Present Illness - History of Present Illness History of Present Illness: 62M transferred from [facility] to ICU for monitoring. He initially was admitted to [facility] with chest pain. Dieestion was ruled out with with CT however he was found to have STEMI and transferred to [facility]. Taken to [facility] with Dr Bishop found to have 3VD, placed on balloon pump and awaiting transfer to [facility] for CT Surg eval. He was intubated for flash pulm edema and is sedated. PMH CAD, HTN Home Meds as per MAR Social and Fam Hx unable to obtain as patient is sedation ROS unable to obtain Past Patient History - Infectious Disease Hx of Infectious Diseases: None - Tetanus Immunizations Tetanus Immunization: Unknown - Past Social History Smoking Status: Heavy Smoker > 10 Cigarettes Daily - ENDOCRINE/METABOLIC Hx Diabetes Mellitus Type 2: Yes - PSYCHIATRIC Hx Substance Use: No - SURGICAL HISTORY Other/Comment: Pt states numerous surgeries r/t ca hx. - ANESTHESIA Hx Anesthesia: Yes Hx Anesthesia Reactions: No Hx Malignant Hyperthermia: No Meds Allergies/Adverse Reactions: Allergies Allergy/AdvReac Type Severity Reaction Status Date / Time No Known Allergies Allergy Verified 04/10/18 07:11 - Medications Medications: Current Medications Aspirin (Ecotrin) 81 mg PO DAILY [facility] Atorvastatin Calcium (Lipitor) 40 mg PO DIN [facility] Carvedilol (Coreg) 3.125 mg PO BID [facility] Sodium Chloride (Sodium Chloride 0.9%) 1,000 mls @ 50 mls/hr IV .Q20H [facility] Heparin Sodium/Sodium Chloride (Heparin 70683 Units/250ml 1/2 Normal Saline) 25,000 units in 250 mls @ 10.271 mls/hr IV .Q24H [facility]; Protocol Dexmedetomidine HCl (Precedex 400mcg/100ml) 400 mcg in 100 mls @ 4.28 mls/hr IV .R97Y41H PRN; Protocol PRN Reason: Sedation NOREPINEPHRINE BIT/0.9 % NACL (Levophed 4 Mg/ 250 Ml Ns Premixed) 4 mg in 250 mls @ 15 mls/hr IV .[id number] PRN; Protocol PRN Reason: TITRATE PER MD ORDER Cefazolin Sodium (Ancef 1gm In Ns) 1 gm in 100 mls @ 100 mls/hr IVPB Q8H [facility] Ramipril (Altace) 1.25 mg PO DAILY [facility] Physical Exam - Constitutional Additional comments: sedated - Head Exam Head Exam: ATRAUMATIC, NORMAL INSPECTION, NORMOCEPHALIC - Eye Exam Eye Exam: EOMI, Normal appearance, PERRL Pupil Exam: NORMAL ACCOMODATION, PERRL - Respiratory Exam Respiratory Exam: Decreased Breath Sounds, Rales - Cardiovascular Exam Cardiovascular Exam: Tachycardia Additional comments: baloon pump in place - Extremities Exam Extremities exam: Positive for: normal inspection Results - Vital Signs Recent Vital Signs: Last Vital Signs Temp 97.9 F 04/10/18 07:12 Pulse 71 04/10/18 11:01 Resp 19 04/10/18 10:30 BP 92/46 L 04/10/18 10:30 Pulse Ox 100 04/10/18 10:30 - Labs Result Diagrams: 04/10/18 10:35 04/10/18 07:20 Labs: Laboratory Results - last 24 hr 04/10/18 04/10/18 04/10/18 07:20 07:20 07:20 WBC 21.8 H RBC 5.36 Hgb 12.7 L Hct 40.4 L MCV 75.4 L MCH 23.7 L MCHC 31.4 RDW 17.6 H Plt Count 531 H MPV 10.4 Neut % (Auto) 74.1 H Lymph % (Auto) 18.0 L [place] % (Auto) 6.4 H Eos % (Auto) 1.3 L Baso % (Auto) 0.2 Lymph # (Auto) 3.9 H [place] # (Auto) 1.4 H Eos # (Auto) 0.3 Baso # (Auto) 0.04 Absolute Neuts (auto) 16.17 H PT INR APTT 33.2 D-Dimer, Quantitative 608 H Plt P2Y12 React Units pCO2 pO2 HCO3 ABG pH ABG Total CO2 ABG O2 Saturation ABG O2 Content ABG Base Excess ABG Hemoglobin ABG Carboxyhemoglobin POC ABG HHb (Measured) ABG Methemoglobin ABG O2 Capacity VBG pH VBG pCO2 VBG HCO3 VBG Total CO2 VBG O2 Sat (Calc) VBG Base Excess VBG Potassium Hgb O2 Saturation Glucose Lactate FiO2 Sodium 136 Potassium 4.4 Chloride 104 Carbon Dioxide 20 L Anion Gap 17 BUN 15 Creatinine 1.0 Est GFR ( Amer) > 60 Est GFR (Non-Af Amer) > 60 POC Glucose (mg/dL) Random Glucose 267 H Calcium 8.7 Magnesium 1.8 Total Bilirubin 0.2 AST 27 ALT 11 Alkaline Phosphatase 55 Troponin I 0.11 D NT-Pro-B Natriuret Pep 551 H Total Protein 8.1 Albumin 4.5 Globulin 3.6 Albumin/Globulin Ratio 1.3 Venous Blood Potassium Blood Type Blood Type Confirm Antibody Screen BBK History Checked 04/10/18 04/10/18 04/10/18 07:20 07:20 10:35 WBC RBC Hgb Hct MCV MCH MCHC RDW Plt Count MPV Neut % (Auto) Lymph % (Auto) [place] % (Auto) Eos % (Auto) Baso % (Auto) Lymph # (Auto) [place] # (Auto) Eos # (Auto) Baso # (Auto) Absolute Neuts (auto) PT 11.6 INR 1.03 APTT D-Dimer, Quantitative Plt P2Y12 React Units pCO2 pO2 78 H HCO3 ABG pH ABG Total CO2 ABG O2 Saturation ABG O2 Content ABG Base Excess ABG Hemoglobin ABG Carboxyhemoglobin POC ABG HHb (Measured) ABG Methemoglobin ABG O2 Capacity VBG pH 7.24 L VBG pCO2 56.0 VBG HCO3 24.0 VBG Total CO2 25.7 VBG O2 Sat (Calc) 94.9 H VBG Base Excess -4.2 L VBG Potassium 4.3 Hgb O2 Saturation Glucose 202 H Lactate 1.8 FiO2 21.0 Sodium 136.0 Potassium Chloride 105.0 Carbon Dioxide Anion Gap BUN Creatinine Est GFR ( Amer) Est GFR (Non-Af Amer) POC Glucose (mg/dL) Random Glucose Calcium Magnesium Total Bilirubin AST ALT Alkaline Phosphatase Troponin I NT-Pro-B Natriuret Pep Total Protein Albumin Globulin Albumin/Globulin Ratio Venous Blood Potassium 4.3 Blood Type AB POSITIVE Blood Type Confirm Antibody Screen Negative BBK History Checked No verified bt 04/10/18 04/10/18 04/10/18 10:35 10:35 10:35 WBC 10.3 D RBC 4.48 Hgb 10.2 L D Hct 34.0 L MCV 75.9 L MCH 22.8 L MCHC 30.0 L RDW 17.3 H Plt Count 377 MPV 10.0 Neut % (Auto) 82.4 H Lymph % (Auto) 7.6 L [place] % (Auto) 9.9 H Eos % (Auto) 0.1 L Baso % (Auto) 0.0 Lymph # (Auto) 0.8 L [place] # (Auto) 1.0 H Eos # (Auto) 0.0 Baso # (Auto) 0.00 Absolute Neuts (auto) 8.48 H PT INR APTT D-Dimer, Quantitative Plt P2Y12 React Units pCO2 pO2 HCO3 ABG pH ABG Total CO2 ABG O2 Saturation ABG O2 Content ABG Base Excess ABG Hemoglobin ABG Carboxyhemoglobin POC ABG HHb (Measured) ABG Methemoglobin ABG O2 Capacity VBG pH VBG pCO2 VBG HCO3 VBG Total CO2 VBG O2 Sat (Calc) VBG Base Excess VBG Potassium Hgb O2 Saturation Glucose Lactate FiO2 Sodium Potassium Chloride Carbon Dioxide Anion Gap BUN Creatinine Est GFR ( Amer) Est GFR (Non-Af Amer) POC Glucose (mg/dL) Random Glucose Calcium Magnesium Total Bilirubin AST ALT Alkaline Phosphatase Troponin I NT-Pro-B Natriuret Pep Total Protein Albumin Globulin Albumin/Globulin Ratio Venous Blood Potassium Blood Type Blood Type Confirm AB POSITIVE Antibody Screen BBK History Checked 04/10/18 04/10/18 10:40 11:20 WBC RBC Hgb Hct MCV MCH MCHC RDW Plt Count MPV Neut % (Auto) Lymph % (Auto) [place] % (Auto) Eos % (Auto) Baso % (Auto) Lymph # (Auto) [place] # (Auto) Eos # (Auto) Baso # (Auto) Absolute Neuts (auto) PT INR APTT D-Dimer, Quantitative Plt P2Y12 React Units pCO2 46 H pO2 317.0 H HCO3 22.6 ABG pH 7.30 L ABG Total CO2 24.0 ABG O2 Saturation 98.3 H ABG O2 Content 14.4 L ABG Base Excess -3.8 L ABG Hemoglobin 9.9 L ABG Carboxyhemoglobin 0.5 POC ABG HHb (Measured) 1.7 ABG Methemoglobin 0.5 ABG O2 Capacity 14.6 L VBG pH VBG pCO2 VBG HCO3 VBG Total CO2 VBG O2 Sat (Calc) VBG Base Excess VBG Potassium Hgb O2 Saturation 97.3 Glucose Lactate FiO2 100.0 Sodium Potassium Chloride Carbon Dioxide Anion Gap BUN Creatinine Est GFR ( Amer) Est GFR (Non-Af Amer) POC Glucose (mg/dL) 170 H Random Glucose Calcium Magnesium Total Bilirubin AST ALT Alkaline Phosphatase Troponin I NT-Pro-B Natriuret Pep Total Protein Albumin Globulin Albumin/Globulin Ratio Venous Blood Potassium Blood Type Blood Type Confirm Antibody Screen BBK History Checked Assessment & Plan - Assessment and Plan (Free Text) Assessment: A/P 62M with STEMI found to have tripple vessel disease (total RCA, LCx, and LAD). No stents placed. Follow cardio recs for post-cath management. Requested Lasix IV 40 (was given 60 IV during procedure) and 5 IV lopressor Cont IABP as per card with heparin drip He is intubated, will check CXR for position Low VT vetilation; check ABG; titrate down 02 if possible Precedex for sedation to avoid hypotension; He is requiring propofol as well which we will tirtate; Starting low dose peripheral levophed Dr Bishop spoke with and updated and daughter Awaiting transfer to [facility] Enrike Marley MD Micu Attending
[2018-04-10] MEDS ORDERED: Milrinone 20mg/100ml D5W 100 ML IV PRN (15:48)
[2018-04-10 17:20] VITALS: BP 110/77; PULSE 94; RESP 37
--- NOTE | 2018-04-10 19:58 | CON ---
DATE: 04/10/2018 REASON FOR CONSULTATION: Acute code STEMI. BRIEF CLINICAL HISTORY: This is a 62-year-old male with past medical history of diabetes, hyperlipidemia, active tobacco abuse, came to the [facility] in [place] with complaint of chest pain and shoulder pain and the back. The patient was evaluated and found to be V1, V2, and V3 ST elevation. The patient went into aortic dissection protocol. CAT scan was shift to the [facility] where code STEMI was activated. Discussed with the patient, the patient is very restless, very short of breath, rales . Stat chest x-ray was ordered and risks, benefits, and alternatives were explained to the patient and we will proceed for cardiac catheterization. A 5000 heparin bolus was given. Brilinta 90 mg was given in the [facility] and 325 aspirin was given, then the patient Integrilin was given. The patient was taken to the culture media laboratory assistant after explaining the risks, benefits, alternatives, and consent was signed. PAST MEDICAL HISTORY: Significant for diabetes and hyperlipidemia. SOCIAL HISTORY: Active tobacco abuse. Denies any history of alcohol abuse. FAMILY HISTORY: Noncontributory at this point. LABORATORY DATA: Labs pending. [facility]; BUN and creatinine were normal. Troponin 0.05. Hemoglobin is pending. Chest x-ray consistent with mild congestive heart failure. EKG shows elevation V1, V2, V3, and reciprocal ST depression. IMPRESSION: Acute code ST-segment elevation myocardial infarction, no evidence of aortic dissection by CAT scan. PLAN: We will continue Integrilin, emergent cardiac catheterization and further recommendations after cardiac catheterization. We will put balloon pump in standby. Kasi Bishop MD
== END 2018-04-10 18:32 | disposition short-term general hospital (02) | DRG 549 ==
LOC: ED 07:10 → ERH 07:36 → ICU 09:07
PROVIDERS: ADMIT Hospitalist; ATTEND Internal Medicine
PROC: 5A02210 Assistance with Cardiac Output using Balloon Pump, Continuous (ICD-10-PCS; principal; 2018-04-10)
PROC: 4A023N7 Measurement of Cardiac Sampling and Pressure, Left Heart, Percutaneous Approach (ICD-10-PCS; 2018-04-10)
PROC: B2151ZZ Fluoroscopy of Left Heart using Low Osmolar Contrast (ICD-10-PCS; 2018-04-10)
PROC: B2111ZZ Fluoroscopy of Multiple Coronary Arteries using Low Osmolar Contrast (ICD-10-PCS; 2018-04-10)
PROC: 5A1935Z Respiratory Ventilation, Less than 24 Consecutive Hours (ICD-10-PCS; 2018-04-10)
PROC: 0BH18EZ Insertion of Endotracheal Airway into Trachea, Via Natural or Artificial Opening Endoscopic (ICD-10-PCS; 2018-04-10)
DX: I21.02 ST elevation (STEMI) myocardial infarction involving left anterior descending coronary artery (principal); R57.0 Cardiogenic shock; I25.10 Atherosclerotic heart disease of native coronary artery without angina pectoris; I25.5 Ischemic cardiomyopathy; I10 Essential (primary) hypertension; E11.9 Type 2 diabetes mellitus without complications; E78.5 Hyperlipidemia, unspecified; F17.200 Nicotine dependence, unspecified, uncomplicated; Z79.4 Long term (current) use of insulin